=== PATIENT | female | born 1990 | race Caucasian/White ===

== ENCOUNTER 2016-08-17 13:01 | Emergency (ER) | payer BC, MEDICAID ==
[2016-08-17 13:42] LABS: SPECIFIC GRAVITY 1.025 (1.001-1.030); URINE BILIRUBIN NEGATIVE (NEGATIVE); URINE BLOOD 3+ (NEGATIVE); URINE GLUCOSE (UA) NEGATIVE (NEGATIVE); URINE LEUKOCYTE ESTERASE 1+ (NEGATIVE); URINE NITRITE NEGATIVE (NEGATIVE); URINE PROTEIN 1+ (NEGATIVE); URINE UROBILINOGEN 1 mg/dL (0-1 mg/dl)
[2016-08-17 13:43] LABS: URINE APPEARANCE HAZY; URINE COLOR AMBER
[2016-08-17 15:03] LABS: URINE BACTERIA RARE
[2016-08-17] MEDS ORDERED: DOCUSATE SODIUM 10 MG/ML SOLN.DROP ONE (15:22)
[2016-08-17] MEDS ORDERED: SODIUM CHLORIDE 0.9% 1,000 ML ONE (15:41)
== END 2016-08-17 16:53 | disposition home or self-care (01) ==
LOC: ED 13:01
DX: O23.42 Unspecified infection of urinary tract in pregnancy, second trimester (principal); N39.0 Urinary tract infection, site not specified; O99.512 Diseases of the respiratory system complicating pregnancy, second trimester; J06.9 Acute upper respiratory infection, unspecified; H61.20 Impacted cerumen, unspecified ear; Z3A.15 15 weeks gestation of pregnancy
CPT/HCPCS: 81001; 99283 ×2; J7030; A9270